=== PATIENT | female | born 1975 | race Caucasian/White ===

== ENCOUNTER → 2021-11-11 10:04 | Outpatient (BNVA) | payer OTHER, SELFPAY | PROVIDERS: PCP Nurse Practitioner Family; Visit Provider Nurse Practitioner Family | DX: G70.00 Myasthenia gravis without (acute) exacerbation (principal); H53.2 Diplopia; D64.9 Anemia, unspecified; G08 Intracranial and intraspinal phlebitis and thrombophlebitis; Z79.899 Other long term (current) drug therapy | CPT/HCPCS: 99212 ==

== ENCOUNTER → 2022-07-12 14:49 | Outpatient (BNVA) | payer OTHER, SELFPAY | PROVIDERS: PCP Nurse Practitioner Family; Visit Provider Nurse Practitioner Family | DX: G70.00 Myasthenia gravis without (acute) exacerbation (principal) | CPT/HCPCS: 99212 ==

== ENCOUNTER → 2023-01-10 10:54 | Outpatient (BNVA) | payer OTHER, SELFPAY | PROVIDERS: PCP Nurse Practitioner Family; Visit Provider Nurse Practitioner Family | DX: G70.00 Myasthenia gravis without (acute) exacerbation (principal) | CPT/HCPCS: 99212 ==

== ENCOUNTER 2023-10-15 09:25 | Outpatient (AMB) | payer OTHER, SELFPAY ==
--- NOTE | 2023-10-15 09:41 | MHC.OFFVIS ---
Intake Vital Signs 10/15/23 09:44 Height 5 ft 7 in Weight 165 lb BMI 25.8 BP 112/72 Blood Pressure Location Rt brachial Position Sitting Intake Visit Reasons: 9m follow up-Confirmed Intake Note: Patient presents for 9 month follow up. no issues or concerns Allergies codeine Allergy (Mild, Verified 10/15/23 09:44) unknown Medication List - Last Reconciled 10/15/23 by KHRIS Garcia pyridostigmine bromide 60 mg PO BID-TID; HPI HPI Comments History of Present Illness Details 48-year-old female presents for f/u visit of ocular myasthenia gravis.. Pt denies any significant interval medical changes. Denies any bothersome myasthenia symptoms. Denies any swallowing or respiratory difficulties. Continues to have diplopia. She wears prisms routinely, but removes to read. She is mindful to avoid/minimize triggers- such as high heat. She has not been using her Mestinon since her last visit here 9 months ago. [facility] Medical History Anemia Cavernous sinus thrombosis Surgical History Previous section Family History Mother HTN (hypertension) Social History Household Members: Children Alcohol intake: current Alcohol intake frequency: a few times a month Patient Tobacco Use Status: Never used Tobacco Review of Systems Const All systems reviewed & are unremarkable except as noted in HPI and below Physical Exam Vital Signs: Last Vital Signs BP 112/72 10/15/23 09:44 BMI result Body Mass Index 25.8 Const General: cooperative and no acute distress Orientation/consciousness: patient oriented x3 HEENT Head: Yes normocephalic Resp Effort & Inspection: normal respiratory effort and able to speak in complete sentences Neuro General: patient oriented x3, gait normal and CN's II-XI intact bilaterally Cognition (Neuro): normal cognition Motor exam (neuro): 5/5 motor strength present throughout Psych Appearance: grossly normal Mental Status: mental status grossly normal Speech and movement: Normal speech and movement present Affect: normal affect Attitude: cooperative Thought process: Normal thought process present Thought content: Normal thought content present Insight: Good insight present (Psych) Judgement: Good judgement present (Psych) Assessment & Plan Assessment & Plan (1) Ocular myasthenia gravis: Code(s): G70.00 - Myasthenia gravis without (acute) exacerbation (2) Diplopia: Code(s): H53.2 - Diplopia Plan Pt currently not taking Mestinon, but if s/s become more bothersome, resume Mestinon 60mg up to BID-TID.. Avoid MG triggers. Continue to use prisms. If OMG s/s worsen, could consider prednisone or IV tx's f/u in 12 months or sooner prn. Coding Level of Care Code Est Pt Level 3 (36570) Diagnoses Ocular myasthenia gravis G70.00 Diplopia H53.2
[2023-10-15 09:44] VITALS: BP 112/72; BMI 25.8
== END 2023-10-15 10:06 | disposition home or self-care (01) ==
PROVIDERS: Visit Provider Nurse Practitioner Family
DX: G70.00 Myasthenia gravis without (acute) exacerbation (principal); H53.2 Diplopia
CPT/HCPCS: 99213

== ENCOUNTER → 2023-10-15 09:25 | Outpatient (BNVA) | payer OTHER, SELFPAY | PROVIDERS: Visit Provider Nurse Practitioner Family | DX: G70.00 Myasthenia gravis without (acute) exacerbation (principal); H53.2 Diplopia | CPT/HCPCS: 99212 ==

== ENCOUNTER → 2024-10-16 07:47 | Outpatient (BNVA) | payer OTHER, SELFPAY | PROVIDERS: PCP Nurse Practitioner Family; Visit Provider Nurse Practitioner Family | DX: G47.00 Insomnia, unspecified (principal); H53.2 Diplopia | CPT/HCPCS: 99212 ==